=== PATIENT | female | born 1970 | race Caucasian/White ===

== ENCOUNTER 2016-09-16 21:28 | Emergency (ER) | payer BC ==
[~2016-09-16 21:28] MED LIST: DENIES HOME MEDS
== END 2016-09-17 01:08 | disposition home or self-care (01) ==
LOC: ER 21:28
PROC: 2W3LX1Z Immobilization of Right Lower Extremity using Splint (ICD-10-PCS; principal; 2016-09-16)
DX: M25.561 Pain in right knee (principal); V29.20XA Unspecified motorcycle rider injured in collision with unspecified motor vehicles in nontraffic accident, initial encounter
CPT/HCPCS: 73560-RT; 73590-RT; 99284; A9270-GY

== ENCOUNTER 2016-09-20 14:17 | Inpatient (IN) | payer BC ==
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
[2016-09-20 20:39] LABS: WBC (NOT ORDERED) (RFLEX) 0 (0-5)
[2016-09-20 20:59] LABS: ASCORBIC ACID (UR NOT ORDER) NEG (NEG); BILIRUBIN, URINE NEGATIVE (NEG); KETONE, URINE NEGATIVE (NEG); LEUKOCYTE ESTERASE(NOT OR NEG (NEG)
[2016-09-21] MEDS ORDERED: *DENIES (18:36)
[2016-09-22 05:25] LABS: HEMATOCRIT 35.8 % (36.0-48.0); HEMOGLOBIN 12.1 g/dL (12.0-16.0)
[2016-09-22 05:32] LABS: INTERNATIONAL NORMAL RATI 1.2 UNITS (-); PROTIME (NOT ORD) 14.8 SEC (12.0-14.5)
[2016-09-22 05:50] LABS: BUN (BLOOD UREA NITROGEN) 13 MG/DL (6-23); CALCIUM, SERUM 8.7 MG/DL (8.5-10.4); CHLORIDE, SERUM 104 MMOL/L (96-112); CO2 (CARBON DIOXIDE) 30 MMOL/L (24-34); CREATININE 0.86 MG/DL (0.55-1.02); GFR AFRICAN AMERICAN 93 ML/MIN (>=60); GFR NON AFRICAN AMERICAN 80 ML/MIN (>=60); GLUCOSE, SERUM 115 MG/DL (60-99); POTASSIUM, SERUM 4.5 MMOL/L (3.5-5.3); SODIUM, SERUM 139 MMOL/L (135-148)
[2016-09-22] MEDS ORDERED: PCET PO (12:50)
[2016-09-22] MEDS ORDERED: C5 PO (12:52)
[2016-09-22] MEDS ORDERED: PR25 PO (12:52)
== END 2016-09-22 14:02 | disposition home or self-care (01) | DRG 489 ==
LOC: 3SO 14:17
PROVIDERS: Specialist
PROC: 0SBC4ZZ Excision of Right Knee Joint, Percutaneous Endoscopic Approach (ICD-10-PCS; principal; 2016-09-20)
PROC: 0SQC4ZZ Repair Right Knee Joint, Percutaneous Endoscopic Approach (ICD-10-PCS; 2016-09-20)
PROC: 0MBN0ZZ Excision of Right Knee Bursa and Ligament, Open Approach (ICD-10-PCS; 2016-09-20)
PROC: 0QSG34Z Reposition Right Tibia with Internal Fixation Device, Percutaneous Approach (ICD-10-PCS; 2016-09-20)
DX: S82.141A Displaced bicondylar fracture of right tibia, initial encounter for closed fracture (principal); S86.211A Strain of muscle(s) and tendon(s) of anterior muscle group at lower leg level, right leg, initial encounter; S86.811A Strain of other muscle(s) and tendon(s) at lower leg level, right leg, initial encounter
CPT/HCPCS: 80048; 81001; 85014; 85018; 85610; 97161-GP; 97165-GO; A9270-GY; C1713; C1769; J0330; J0690; J1170; J2250; J2405; J2550; J2710; J2795; J3010